=== PATIENT | male | born 1965 | race Hispanic/Latino ===

== ENCOUNTER 2019-01-28 08:43 | Emergency (ER) | payer BC, OTHER ==
[2019-01-28 09:14] LABS: BASOPHILS % (AUTO) 1.1 % (0.0-5.0); EOSINOPHILS % (AUTO) 1.2 % (0.0-8.0); HEMATOCRIT 40.5 % (42-54); LYMPHOCYTES % (AUTO) 27.8 % (21.0-51.0); MEAN CORPUSCULAR HEMOGLOBIN 30.1 pg (27.0-33.0); MEAN CORPUSCULAR HGB CONC 34.7 g/dL (32.0-36.0); MEAN CORPUSCULAR VOLUME 86.8 fL (79-99); MONOCYTES % (AUTO) 5.2 % (3.0-13.0); NEUTROPHILS % (AUTO) 64.7 % (40.0-77.0); PLATELET COUNT (AUTO) 212 K/uL (130-400); RED BLOOD CELL COUNT(AUTO) 4.66 MIL/uL (4.50-6.20); RED CELL DISTRIBUTION WIDTH 13.7 % (11.0-15.5); WHITE BLOOD COUNT (AUTO) 8.7 K/uL (4.8-10.8)
[2019-01-28 09:25] LABS: CREATININE 1.2 mg/dL (0.5-1.5); POTASSIUM 4.6 mmol/L (3.5-5.1)
[2019-01-28 09:30] LABS: ALBUMIN 3.7 g/dL (3.5-5.0); BILIRUBIN,TOTAL 0.8 mg/dL (0.2-1.0); TOTAL PROTEIN, SERUM 8.4 g/dL (6.0-8.3)
[2019-01-28] MEDS ORDERED: KETOROLAC TROMETHAMINE 30MG/ML ONE (09:33)
== END 2019-01-28 10:28 | disposition home or self-care (01) ==
LOC: EDH 08:43
DX: M10.021 Idiopathic gout, right elbow (principal)
CPT/HCPCS: 36415; 80053; 85025; 96374; 99284; J1885

== ENCOUNTER 2022-08-24 14:00 | Emergency (ER) | payer OTHER ==
[~2022-08-24] VITALS: Ht 177.8 cm; Wt 94.3 kg
[2022-08-24 14:04] VITALS: BP 154/98
== END 2022-08-24 16:50 | disposition left against medical advice (07) ==
LOC: EDH 14:00
DX: M25.569 Pain in unspecified knee (principal); Z53.21 Procedure and treatment not carried out due to patient leaving prior to being seen by health care provider